=== PATIENT | female | born 1970 | race Caucasian/White ===

== ENCOUNTER 2017-06-13 07:53 | Day surgery (SDC) | payer OTHER ==
[~2017-06-13] VITALS: Ht 165.1 cm; Wt 108.2 kg
[2017-06-13 08:17] VITALS: BP 120/69; PULSE 90; TEMP 98.2
[2017-06-13] MEDS ORDERED: ALLEGRA 180MG180 MG PO (08:42)
[2017-06-13] MEDS ORDERED: COLACE 100100 MG/CAP PO (08:43)
[2017-06-13] MEDS ORDERED: COZAAR 25MG25 MG/TAB PO (08:43)
[2017-06-13] MEDS ORDERED: TIROSINT50 MC1 PO (08:44)
[2017-06-13] MEDS ORDERED: FLONASEALLERGY NS (08:45)
[2017-06-13] MEDS ORDERED: PROAIR HFA0.09 MG/AC IH (08:45)
[2017-06-13] MEDS ORDERED: PREMPRO 0.3 MG-1 TAB PO (08:46)
[2017-06-13 09:45] VITALS: BP 142/96; PULSE 80; TEMP 98.4
[2017-06-13 10:00] VITALS: BP 142/89; PULSE 70
[2017-06-13 10:15] VITALS: BP 133/89; PULSE 70
== END 2017-06-13 10:30 | disposition home or self-care (01) ==
LOC: SDCO 07:53
DX: Z12.11 Encounter for screening for malignant neoplasm of colon (principal); I10 Essential (primary) hypertension; Z85.038 Personal history of other malignant neoplasm of large intestine; Z90.710 Acquired absence of both cervix and uterus
CPT/HCPCS: J2250; J3010; J7030